=== PATIENT | female | born 1985 | race Caucasian/White ===

== ENCOUNTER 2017-02-13 22:41 | Inpatient (IN) | payer OTHER ==
[~2017-02-13] VITALS: Ht 154.9 cm; Wt 80.3 kg
[2017-02-13] MEDS ORDERED: ALBU17IN INH (23:12)
[2017-02-13] MEDS ORDERED: AMIT10TA PO (23:19)
[2017-02-13] MEDS ORDERED: LAMO100T PO (23:37)
[2017-02-13] MEDS ORDERED: HYDR-3713 PO (23:37)
[2017-02-13] MEDS ORDERED: OMEP40CA2 PO (23:37)
[2017-02-13] MEDS ORDERED: DICL50TAB PO (23:37)
[2017-02-13] MEDS ORDERED: ZOLO100T PO (23:37)
[2017-02-13] MEDS ORDERED: QUET1TAB10 PO (23:37)
[2017-02-13] MEDS ORDERED: FENO134C PO (23:37)
[2017-02-13] MEDS ORDERED: ZOFR20TA PO (23:37)
[2017-02-13] MEDS ORDERED: DICY10CA13 PO (23:37)
[2017-02-13] MEDS ORDERED: LORA10CA PO (23:37)
[2017-02-13] MEDS ORDERED: PRAM0.5T4 PO (23:37)
--- NOTE | 2017-02-14 09:50 | HPEPDOC ---
Medical History and Physical Date of Admission Feb 14, 2017 at 05:12 History and Physical PCP: Andrew Reynolds MD ATTENDING: Dr. José Manuel Mcgee HPI: 31yoF admitted to [facility] for unspecified depressive disorder, being medically examined today. Pt was transferred 02/13/17 from [facility] following evaluation for intentional overdose of 40 Vicodin and was cleared as per Poison control and ER physician. Pt states she has chronic low back pain. He states her pain has not been controlled. She has pain in the low back which is achy and sharp. It radiates into both legs and she states the pain isn't in her entire leg bilaterally. She feels weakness in her legs with prolonged walking or standing. Numbness and tingling in her legs if she does a lot of standing. She denies any bowel or bladder incontinence. She states she most recently had an MRI of her lumbosacral spine last week and [facility]. She also follows with pain management at [facility] for management of her pain. She has an appointment scheduled with neurosurgery and Kyrie February 18. Denies any fevers, chills, weakness, fatigue, RODGERS, CP, SOB, cough, palpitations, abdominal pain, N/V/D or changes in bowel or bladder habits. PMHx: Asthma Insomnia chronic LBP. Follows with Neurosurgery Dr Kurt Mittal. Dr Weaver [facility]. chronic abdominal pain/IBS HLD allergic rhinitis GERD Bipolar disorder anxiety depression Mood disorder social anxiety PSHX: partial hysterectomy cholecystectomy appendectomy Rt knee surgery umbilical hernia repair SOCHX: Resides in: [facility] Marital Status: Kids: 2 Employment: unemployed Tobacco use: denies ETOH: denies Illicit Drugs: Denies IV Drug Use: Denies Tattoos done unprofessionally: Denies FAMHX: Mother: Alive, HLD Father: Alive, well Siblings: Alive, well Children: Alive, Bipolar disorder, mood disorder Unexpected deaths due to medical reasons: None. ROS: As noted in HPI, otherwise 11pt ROS of systems reviewed and remarkable only for LMP unknown. PE: GEN: 31yoF, appears stated age. Well-nourished, well developed. No acute distress. Alert and oriented x 3. Pleasant, interactive. HEENT: Normocephalic, atraumatic. Pupils are equal, round, and reactive to light. Extraocular movements are intact. No nystagmus appreciated. Sclera are nonicteric. Conjunctiva without injection. Nose midline. Nasal turbinates without bogginess. EACs both patent BL. TMs both visualized and kerr with good cone of light, no bulging or erythema. No facial asymmetry. Moist mucous membranes. Dentition fair. Pharynx pink and moist, no cobblestoning. Neck supple , trachea midline. No lymphadenopathy or thyromegaly appreciated. CHEST: Regular rate and rhythm, +S1, +S2 LUNGS: Clear to auscultation bilaterally. No wheezes, rales, or rhonchi. Breathing appears symmetric and easy. Patient is speaking in full sentences. No accessory muscle use. ABD: Round, soft, non-tender, non-distended. +Bowel sounds throughout. No rebound or guarding. No costovertebral angle tenderness. EXT: Pulses 2+ bilaterally dorsalis pedis and radial. No lower extremity edema appreciated. SKIN: [place], dry, warm. Capillary refill <2sec. No rashes. NEURO: Alert and oriented x 3. Cranial nerves III-XII are intact. No focal deficits appreciated. EKG: pending. [facility] labs WBC 8.14 Hgb 12.8 HCT 37.7 Plt 292 Na 139 k 3.7 Cl 107 CO2 22.7 Ca 9.4 Gluc 118 BUN 14 SCr 1.0 AST 24 ALT 39 Toxicology remarkable for opiates UA neg A&P: 31yoF admitted to [facility] for unspecified depressive disorder 1. Psych. Plan per Psychiatry. EObtain baseline EKG to assure the safety of psychiatric medications as they can prolong the QT interval. 2. Chronic low back pain. As per ISTOP Pt received #84 tab Vic[address] as epr Dr Weaver 02/04/17. Diclofenac 50 mg BID not available, Ibuprofen as needed. Request pain management opinion. Request copy of recent MRI LS Spine. Outpt f/u with her neurosurgeon in [place] and Pain management [place]. 3. Asthma. Continue Albuterol as needed. 4. Follow up with PCP on discharge. 5. Chronic abdominal pain. Continue dicyclomine and Zofran as needed. 6. Allergic rhinitis. Continue Loratidine. 7. Dyslipidemia. Continue fenofibrate. 8. GERD. Continue PPI. 9. Labs from [facility]. 10. Staff member Salome Johnson present throughout exam. Vital Signs Vital Signs Date Time Temp Pulse Resp B/P (MAP) Pulse Ox O2 Delivery O2 Flow Rate FiO2 02/14/17 06:01 99.5 95 18 121/77 (92) 96 Room Air Home Medications Scheduled (Loratadine) 10 Mg Cap, 10 MG PO DAILY Amitriptyline HCl (Amitriptyline HCl) 10 Mg Tab, 10 MG PO QHS Diclofenac Sodium (Diclofenac Sodium Dr) 50 Mg Tab, 50 MG PO TID for PAIN OR DYSPNEA Dicyclomine HCl (Dicyclomine HCl) 10 Mg Cap, 10 MG PO TID Fenofibrate (Fenofibrate Micronized) 134 Mg Cap, 134 MG PO QHS Lamotrigine (Lamotrigine) 100 Mg Tab, 150 MG PO DAILY Omeprazole (Omeprazole) 40 Mg Cap, 20 MG PO BID Pramipexole Dihydrochloride (Pramipexole Dihydrochlori) 0.5 Mg Tab, 0.5 MG PO QHS Quetiapine Fumerate (Quetiapine Fumarate) 300 Mg Tab, 300 MG PO QHS Sertraline Hcl (Zoloft) 100 Mg Tab, 100 MG PO DAILY Scheduled PRN Acetaminophen/Hydrocodone (Hydrocodone/Acetaminophen 5-325 mg) 1 Tab Tab, 1 TAB PO Q6H PRN for PAIN MDD 4 Albuterol Sulfate (Ventolin Hfa) 200 Puff/8 Gm Aers, 2 PUFF INH for SHORTNESS OF BREATH Ondansetron HCl (Zofran) 4 Mg Tab, 4 MG PO Q6HP PRN for NAUSEA OR VOMITING Allergies Coded Allergies: Cephalexin (Verified Adverse Reaction, Unknown, 02/13/17) Latex (Verified Adverse Reaction, Unknown, 02/13/17) Mirtazapine (Verified Adverse Reaction, Unknown, 02/13/17) Paroxetine (Verified Adverse Reaction, Unknown, 02/13/17) Povidone Iodine (Verified Adverse Reaction, Unknown, 02/13/17) TAPE (Verified Adverse Reaction, Unknown, 02/13/17) Mirna Estrada Feb 14, 2017 09:50
[2017-02-14] MEDS ORDERED: ONDANSETRON 4 MG TAB (S0181) PO PRN (11:00)
[2017-02-14] MEDS: OMEPRAZOLE 20 MG CAP PO SCH ×2 (11:30→21:24)
[2017-02-14] MEDS ORDERED: QUEtiapine FUMARATE 100 MG TAB PO PRN (11:30)
[2017-02-14] MEDS: LORATADINE 10 MG TAB PO SCH (11:30)
[2017-02-14] MEDS: DICYCLOMINE 10 MG CAP PO SCH ×3 (11:48→21:24)
[2017-02-14] MEDS: SERTRALINE 100 MG TAB PO SCH (11:51)
[2017-02-14] MEDS: VENLAFAXINE **XR** 37.5 MG CAPSULE PO SCH (11:51)
[2017-02-14] MEDS: OXcarbazepine 150 MG TAB PO SCH ×2 (11:52→21:23)
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
[2017-02-14 13:26] VITALS: BP 122/77
[2017-02-14 18:00] VITALS: BP 128/78
[2017-02-14] MEDS ORDERED: traZODone 50 MG TAB PO SCH (21:00)
[2017-02-14] MEDS: lamoTRIgine 25 MG TAB PO SCH (21:24)
[2017-02-14] MEDS: FENOFIBRATE 145 MG TAB (TRICOR) PO SCH (21:24)
[2017-02-14] MEDS: IBUPROFEN 400 MG TAB PO PRN (21:24)
[2017-02-15 06:08] VITALS: BP 121/68
--- NOTE | 2017-02-15 07:11 | ECGEPIP ---
Stationary ECG Study [facility] Test Date: 2017-02-14 Pat Name: IRA LAGUNAS Department: Room: [place] [address] Gender: F Waste Recycler: PRASANNA : 1985 Requested By: Mirna Estrada Order Number: [id number] Reading MD: Merlin Webster Measurements Intervals [place] Rate: 90 P: 6 OK: 155 QRS: 24 QRSD: 89 T: 3 QT: 351 QTc: 430 Interpretive Statements Normal sinus rhythm Nonspecific T-wave abnormality Comparison tracing not on file Electronically Signed On 02-15-2017 7:11:27 EDT by Merlin Webster
[2017-02-15] MEDS: OMEPRAZOLE 20 MG CAP PO SCH ×2 (08:24→21:10)
[2017-02-15] MEDS: VENLAFAXINE **XR** 37.5 MG CAPSULE PO SCH (08:25)
[2017-02-15] MEDS: SERTRALINE 100 MG TAB PO SCH (08:25)
[2017-02-15] MEDS: OXcarbazepine 150 MG TAB PO SCH ×2 (08:25→21:11)
[2017-02-15] MEDS: DICYCLOMINE 10 MG CAP PO SCH ×3 (08:25→21:11)
[2017-02-15] MEDS: LORATADINE 10 MG TAB PO SCH (08:25)
[2017-02-15] MEDS: IBUPROFEN 400 MG TAB PO PRN ×2 (09:30→21:10)
--- NOTE | 2017-02-15 17:14 | IPN ---
DATE: 02/15/2017 A 31-year-old female with history of depression, bipolar disorder, learning disability, attention deficit hyperactivity disorder (ADHD), and posttraumatic stress disorder (PTSD) admitted after she overdosed on 40 tablets of Vicodin. SUBJECTIVE: "I'm about the same, I could not sleep last night." OBJECTIVE: No major changes since yesterday at intake. The patient has tolerated well the medication. However, she says that she could not sleep well and was waking up during the night. The patient is motivated for treatment. She continues depressed, anxious with psychomotor retardation, labile affect and intermittent suicidal thoughts. MENTAL STATUS EXAMINATION: The patient is dressed in [facility]. The patient is cooperative during the interview. She has fair eye contact. Speech is slow and monotone. Mood is depressed and anxious. Affect is labile and restricted. No delusions or hallucinations. Memory, attention and concentration are fair. The patient reports intermittent suicidal thoughts. Denies homicidal ideation. Insight and judgment is limited. ASSESSMENT: 1. Depression/bipolar disorder. 2. Suicidal ideation. 3. Overdose. PLAN: 1. Increase Effexor XR to 75 mg by mouth every morning. 2. Continue with Zoloft 100 mg by mouth every morning. 3. Increase Trileptal to 150 mg by mouth twice a day. 4. Increase trazodone to 300 mg by mouth at bedtime. 5. Continue Lamictal 25 mg by mouth at bedtime. 6. Continue Seroquel 100 mg by mouth at bedtime as needed for insomnia. 7. Continue close observation. 8. Continue medication management, individual and group therapy.
[2017-02-15 18:28] VITALS: BP 136/89
[2017-02-15] MEDS: traZODone 100 MG TAB PO SCH (21:10)
[2017-02-15] MEDS: lamoTRIgine 25 MG TAB PO SCH (21:10)
[2017-02-15] MEDS: FENOFIBRATE 145 MG TAB (TRICOR) PO SCH (21:10)
[2017-02-16 06:31] VITALS: BP 123/72
[2017-02-16] MEDS: DICYCLOMINE 10 MG CAP PO SCH ×3 (08:20→21:32)
[2017-02-16] MEDS: OMEPRAZOLE 20 MG CAP PO SCH ×2 (08:20→21:32)
[2017-02-16] MEDS: VENLAFAXINE **XR** 75MG CAPSULE PO SCH (08:20)
[2017-02-16] MEDS: SERTRALINE 100 MG TAB PO SCH (08:20)
[2017-02-16] MEDS: LORATADINE 10 MG TAB PO SCH (08:20)
[2017-02-16] MEDS: OXcarbazepine 150 MG TAB PO SCH ×2 (08:20→21:33)
--- NOTE | 2017-02-16 12:40 | CR ---
DATE OF CONSULTATION: 02/15/2017 REFERRING PROVIDER: Mirna Estrada. CHIEF COMPLAINT: Low back pain. HISTORY OF PRESENT ILLNESS: Jackelin is a 31-year-old female who suffers from chronic low back pain. She has been receiving treatment this past year from pain management in [place] where she resides. She trialed injections, last injection being in November, and states that they did not work. They started her on hydrocodone in November and unfortunately this is a medication that she overtook in a suicide attempt recently and reason for her current hospitalization in inpatient mental health unit (IM). She reports that she has had low back pain that seems to have begun after a vaginal delivery in 2004. Reports low back pain with bilateral leg pain that is aggravated by walking. Rating pain intensity as an 8/10 visual analogue scale (VAS). The patient appears comfortable during the interview. The patient states that she has a herniated disc that she was told by pain management in [place]. Denies recent illness, fever or weight loss. Denies bowel or bladder dysfunction. PAST MEDICAL HISTORY: 1. Asthma. 2. Insomnia. 3. Chronic low back pain. 4. Chronic abdominal pain/irritable bowel syndrome (IBS). 5. Allergic rhinitis. 6. Gastroesophageal reflux disease (GERD). 7. Bipolar disorder. 8. Anxiety. 9. Depression. 10. Mood disorder. 11. Social anxiety. SURGICAL HISTORY: 1. Umbilical hernia repair. 2. Right knee surgery. 3. Appendectomy. 4. Cholecystectomy. 5. Partial hysterectomy. SOCIAL HISTORY: The patient is and resides with her . Reports good relations with . She has two children that do not currently live with her. She resides in [place], [place]. She is unemployed. Denies alcohol, tobacco or illicit drug use. Denies history of IV drug use. FAMILY HISTORY: One sibling out of four. One sibling who is alive has a heroin addiction disorder. Denies addiction disorder or alcohol or drug use or abuse with her parents or immediate grandparents. REVIEW OF SYSTEMS: The 11-point review of systems is reviewed and remarkable only for complaints noted in the history of present illness (HPI). PHYSICAL EXAMINATION: Awake, alert, pleasant. Vital Signs: 99.7, 79, 18, blood pressure (BP) 121/68. Cardiovascular: S1, S2 normal rate and rhythm. Lungs: Clear to auscultation bilaterally. Respirations nonlabored. Abdomen: Soft/nontender. Skin: Intact. No rashes. Inspection of Spine: Tenderness noted over lumbosacral (LS) axis and lumbar paraspinals, right greater than left. Range of joint motion of the spine is full with minimal increases in pain noted. Neuromuscular: Muscle strength and tone bilateral lower extremities equal 5/5. Sensation - normal sensation bilateral lower extremities. Normal steady gait. IMAGING STUDIES: None available. ASSESSMENT: Chronic low back pain. PLAN: I would recommend increasing ibuprofen to 800 mg three times a day (t.i.d.) times 10 days. Topical Shadi-Londono could be added to regimen twice a day (b.i.d.) Continue followup with pain management in [place] upon discharge. If you have any questions or concerns, please do not hesitate to contact me.
[2017-02-16 18:16] VITALS: BP 119/77
[2017-02-16] MEDS: FENOFIBRATE 145 MG TAB (TRICOR) PO SCH (21:32)
[2017-02-16] MEDS: QUEtiapine FUMARATE 50 MG TAB PO PRN (21:32)
[2017-02-16] MEDS: lamoTRIgine 25 MG TAB PO SCH (21:33)
[2017-02-16] MEDS: traZODone 100 MG TAB PO SCH (21:33)
[2017-02-17 06:52] VITALS: BP 98/68
[2017-02-17] MEDS: OXcarbazepine 150 MG TAB PO SCH ×2 (08:37→21:46)
[2017-02-17] MEDS: DICYCLOMINE 10 MG CAP PO SCH ×3 (08:37→21:46)
[2017-02-17] MEDS: VENLAFAXINE **XR** 75MG CAPSULE PO SCH (08:37)
[2017-02-17] MEDS: LORATADINE 10 MG TAB PO SCH (08:37)
[2017-02-17] MEDS: OMEPRAZOLE 20 MG CAP PO SCH ×2 (08:37→21:46)
[2017-02-17] MEDS: SERTRALINE 100 MG TAB PO SCH (08:37)
[2017-02-17] MEDS: lamoTRIgine 25 MG TAB PO SCH ×2 (11:55→21:46)
[2017-02-17] MEDS: ALBUTEROL 90 MCG/ACT 8GM HFA INHALER INH PRN ×2 (12:01→17:52)
--- NOTE | 2017-02-17 15:17 | IPN ---
DATE: 02/16/2017 31-year-old female with history of depression, bipolar disorder, learning disability, attention deficit/hyperactivity disorder (ADHD) and post-traumatic stress disorder (PTSD) admitted after she overdosed on 40 tablets of Vicodin. SUBJECTIVE: "I am feeling a little better". OBJECTIVE: The patient continues depressed with psychomotor retardation. Denies side effects from the medication. Slept better last night with increase of trazodone. Pain consult was done today. No evidence of psychotic symptoms. MENTAL STATUS EXAM: The patient dressed in [facility]. The patient is cooperative during the interview. Speech is slow and monotone. Mood is depressed and anxious, but somewhat improved from yesterday. Affect is labile and restricted. No delusions or hallucinations. Memory, attention and concentration are fair. The patient is invested in treatment. Insight and judgment is fair. ASSESSMENT: 1. Depression/bipolar disorder. 2. Suicidal ideation. 3. Overdose. PLAN: 1. Continue Effexor XR 75 mg by mouth every a.m. 2. Continue Zoloft 100 mg by mouth every a.m. 3. Continue Trileptal 150 mg by mouth twice a day 4. Continue Lamictal 25 mg by mouth at bedtime 5. Continue trazodone 300 mg by mouth at bedtime 6. Decrease Seroquel to 50 mg by mouth at bedtime. May repeat times one as needed insomnia. 7. Continue medication management, individual and group therapy.
[2017-02-17] MEDS: IBUPROFEN 400 MG TAB PO PRN (16:10)
[2017-02-17 18:00] VITALS: BP 113/72
[2017-02-17] MEDS: traZODone 100 MG TAB PO SCH (21:46)
[2017-02-17] MEDS: FENOFIBRATE 145 MG TAB (TRICOR) PO SCH (21:46)
[2017-02-17] MEDS: QUEtiapine FUMARATE 50 MG TAB PO PRN (21:46)
--- NOTE | 2017-02-17 22:32 | IPN ---
DATE: 02/17/2017 A 31-year-old female with history of depression, bipolar disorder, learning disability, attention deficit/hyperactivity disorder (ADHD) and post-traumatic stress disorder (PTSD) admitted after she overdosed on 40 tablets of Vicodin. SUBJECTIVE: "I am feeling better." OBJECTIVE: The patient continues to improve slowly. She is denying side effect from the medication. She reports that this medication is more effective than her medication as outpatient. She is able to sleep well with 300 mg of trazodone at night plus 50 mg of Seroquel. No evidence of psychotic symptoms. MENTAL STATUS EXAMINATION: The patient is dressed in [facility]. The patient is cooperative during the interview. She has fair eye contact. Speech is slow and monotone. Mood is depressed and anxious. Affect is labile and restricted. No delusions or hallucinations. Memory, attention and concentration are fair. The patient is improving and is able to contract for safety during the interview. No homicidal thoughts. Insight and judgment is limited. ASSESSMENT: 1. Depression/bipolar disorder. 2. Suicidal ideation. 3. Overdose. PLAN: 1. Continue Effexor XR 75 mg by mouth every morning. 2. Decrease Zoloft to 50 mg by mouth every morning. 3. Continue Trileptal 150 mg by mouth twice a day. 4. Increase Lamictal to 25 mg by mouth twice a day. 5. Continue trazodone 300 mg by mouth at bedtime. 6. Continue Seroquel 50 mg by mouth at bedtime. 7. Continue medication management, individual and group therapy.
[2017-02-18 06:00] VITALS: BP 109/60
[2017-02-18] MEDS ORDERED: SERTRALINE HCL 50 MG TAB PO SCH (09:00)
[2017-02-18] MEDS: VENLAFAXINE **XR** 75MG CAPSULE PO SCH (09:30)
[2017-02-18] MEDS: OXcarbazepine 150 MG TAB PO SCH ×2 (09:30→21:13)
[2017-02-18] MEDS: LORATADINE 10 MG TAB PO SCH (09:30)
[2017-02-18] MEDS: OMEPRAZOLE 20 MG CAP PO SCH ×2 (09:30→21:13)
[2017-02-18] MEDS: DICYCLOMINE 10 MG CAP PO SCH ×3 (09:30→21:13)
[2017-02-18] MEDS: lamoTRIgine 25 MG TAB PO SCH ×2 (09:30→21:13)
[2017-02-18 18:00] VITALS: BP 126/87
[2017-02-18] MEDS: QUEtiapine FUMARATE 50 MG TAB PO PRN (21:13)
[2017-02-18] MEDS: FENOFIBRATE 145 MG TAB (TRICOR) PO SCH (21:13)
[2017-02-18] MEDS: traZODone 100 MG TAB PO SCH (21:13)
--- NOTE | 2017-02-19 01:01 | IPN ---
DATE OF SERVICE: 02/18/2017 31-year-old female with history of depression, bipolar disorder, learning disability, attention deficit hyperactivity disorder (ADHD), and posttraumatic stress disorder (PTSD). She was admitted after she overdosed on 40 tablets of Vicodin. SUBJECTIVE: "I'm feeling much better." OBJECTIVE: Patient continues to improve. She has very little insight, but she is motivated for treatment. Patient is denying side effects from the medication. Patient is sleeping well now with the help of trazodone. There is no evidence of psychotic symptoms. MENTAL STATUS EXAMINATION: Patient is dressed in [facility]. Patient is cooperative during the interview, has fair eye contact. Speech is normal in rate, volume, articulation, is coherent and is spontaneous. Mood is depressed and anxious, but improved. Affect is less restricted. No delusions or hallucinations. Memory, attention and concentration are fair. Patient is able to contract for safety during her hospitalization. Insight and judgment is limited. ASSESSMENT: 1. Depression/bipolar disorder. 2. Suicidal ideation. 3. Overdose. PLAN: 1. Continue Effexor XR 75 mg by mouth every morning. 2. Decrease Zoloft to 25 mg by mouth every morning. 3. Continue Trileptal 150 mg by mouth twice a day. 4. Continue Lamictal 25 mg by mouth twice a day. 5. Continue trazodone 300 mg by mouth nightly. 6. Continue Seroquel 50 mg by mouth nightly as needed for insomnia. 7. Continue medication management, individual and group therapy.
[2017-02-19 06:46] VITALS: BP 112/55
[2017-02-19] MEDS: OXcarbazepine 150 MG TAB PO SCH ×2 (08:20→22:28)
[2017-02-19] MEDS: LORATADINE 10 MG TAB PO SCH (08:20)
[2017-02-19] MEDS: OMEPRAZOLE 20 MG CAP PO SCH ×2 (08:20→22:28)
[2017-02-19] MEDS: VENLAFAXINE **XR** 75MG CAPSULE PO SCH (08:20)
[2017-02-19] MEDS: DICYCLOMINE 10 MG CAP PO SCH ×3 (08:20→22:29)
[2017-02-19] MEDS: lamoTRIgine 25 MG TAB PO SCH ×2 (08:20→22:29)
[2017-02-19] MEDS: SERTRALINE HCL 25 MG TABLET PO SCH (08:20)
[2017-02-19 18:20] VITALS: BP 106/70
[2017-02-19] MEDS: traZODone 100 MG TAB PO SCH (22:28)
[2017-02-19] MEDS: FENOFIBRATE 145 MG TAB (TRICOR) PO SCH (22:28)
[2017-02-19] MEDS: QUEtiapine FUMARATE 50 MG TAB PO PRN (22:31)
[2017-02-20 06:33] VITALS: BP 118/62
[2017-02-20] MEDS: LORATADINE 10 MG TAB PO SCH (08:17)
[2017-02-20] MEDS: lamoTRIgine 25 MG TAB PO SCH ×2 (08:17→21:11)
[2017-02-20] MEDS: OMEPRAZOLE 20 MG CAP PO SCH ×2 (08:17→21:12)
[2017-02-20] MEDS: SERTRALINE HCL 25 MG TABLET PO SCH (08:17)
[2017-02-20] MEDS: DICYCLOMINE 10 MG CAP PO SCH ×3 (08:17→21:12)
[2017-02-20] MEDS: VENLAFAXINE **XR** 75MG CAPSULE PO SCH (08:17)
[2017-02-20] MEDS: OXcarbazepine 150 MG TAB PO SCH ×2 (08:17→21:12)
[2017-02-20 09:30] VITALS: BP 118/62
[2017-02-20 18:00] VITALS: BP 111/79
[2017-02-20] MEDS: FENOFIBRATE 145 MG TAB (TRICOR) PO SCH (21:12)
[2017-02-20] MEDS: traZODone 100 MG TAB PO SCH (21:12)
[2017-02-20] MEDS: QUEtiapine FUMARATE 50 MG TAB PO PRN (21:12)
[2017-02-21 07:17] VITALS: BP 128/89
[2017-02-21] MEDS: lamoTRIgine 25 MG TAB PO SCH (08:26)
[2017-02-21] MEDS: OXcarbazepine 150 MG TAB PO SCH (08:26)
[2017-02-21] MEDS: SERTRALINE HCL 25 MG TABLET PO SCH (08:26)
[2017-02-21] MEDS: LORATADINE 10 MG TAB PO SCH (08:26)
[2017-02-21] MEDS: OMEPRAZOLE 20 MG CAP PO SCH (08:27)
[2017-02-21] MEDS: VENLAFAXINE **XR** 75MG CAPSULE PO SCH (08:27)
[2017-02-21] MEDS: DICYCLOMINE 10 MG CAP PO SCH (08:27)
[2017-02-21] MEDS ORDERED: OXCA150T PO (09:24)
[2017-02-21] MEDS ORDERED: TRAZ10TA PO (09:24)
[2017-02-21] MEDS ORDERED: QUET5TAB PO (09:24)
[2017-02-21] MEDS ORDERED: VENL75CA PO (09:24)
[2017-02-21] MEDS ORDERED: LAMI25TA PO (09:24)
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
== END 2017-02-21 11:30 | disposition home or self-care (01) | DRG 754 ==
LOC: M ED 23:50 → M ED INP 02-14 05:12 → M PSY 02-14 06:13
PROVIDERS: ADMIT Psychiatry & Neurology Psychiatry; ATTEND Psychiatry & Neurology Psychiatry
DX: F32.9 Major depressive disorder, single episode, unspecified (principal); F41.9 Anxiety disorder, unspecified; F90.9 Attention-deficit hyperactivity disorder, unspecified type; F81.9 Developmental disorder of scholastic skills, unspecified; M54.5 Low back pain; F43.10 Post-traumatic stress disorder, unspecified; J45.909 Unspecified asthma, uncomplicated; K58.9 Irritable bowel syndrome, unspecified; K21.9 Gastro-esophageal reflux disease without esophagitis; F40.10 Social phobia, unspecified; Z91.5 Personal history of self-harm; Z91.410 Personal history of adult physical and sexual abuse; Z62.810 Personal history of physical and sexual abuse in childhood